=== PATIENT | male | born 1970 | race Caucasian/White ===

== ENCOUNTER 2017-11-13 15:55 | Emergency (ER) | payer OTHER ==
[~2017-11-13] VITALS: Ht 167.6 cm; Wt 73.5 kg
[~2017-11-13 15:55] MED LIST: ADVAIR 100/501 DISK IH; ASPIRIN325 MG PO; BUTALB-APAP-CA1 EACH PO; CARBAMAZEPINE200 MG; CYCLOBENZAPRINE 10 M; CYMBALTA60 MG; CYMBALTA60 MG PO; EXTRA STRENGTH500 M1 PO; FIORICET,ESG1 TABLET PO; LIORESAL10 MG PO; LISINOPRIL; LISINOPRIL5 MG; LO-DOSE ASPIRIN81 M1 PO; LUNESTA3 MG; LUNESTA3 MG PO; MOTRIN600 MG PO; NEURONTIN300 MG PO; NEXIUM40 MG; NEXIUM40 MG PO; PRAVACHOL40 MG PO; PRAVASTATIN SOD40 MG; PRINIVIL5 MG PO; PROAIR HFA8.5 GM IH; PROVOCHOL; TEGRETOL200 MG PO; TOPAMAX100 MG PO; TOPIRAMATE100 MG PO
[2017-11-13 17:16] LABS: HEMATOCRIT 40.9 % (38.0-50.0); MCHC 34.2 G/DL (30.0-36.0); MCV 87.6 FL (86-99); PLATELET COUNT 209 K/uL (156-360); RBC DIS.WIDTH-CV 12.6 % (11.8-14.6); RBC DIS.WIDTH-SD 40.5 % (39-53); RED BLOOD COUNT 4.67 M/uL (4.00-5.50); WHITE BLOOD COUNT 6.9 K/uL (4.1-10.2)
[2017-11-13 17:32] LABS: CHLORIDE 106 mEq/L (99-109); POTASSIUM 3.9 mEq/L (3.7-5.4); SODIUM 138 mEq/L (136-147)
[2017-11-13 17:33] LABS: APPEARANCE CLEAR ((CLEAR)); BILIRUBIN NEGATIVE; BLOOD NEGATIVE; COLOR YELLOW ((YELLOW)); GLUCOSE (STRIP) NEGATIVE; KETONES 20; LEUKOCYTES TRACE; NITRITE NEGATIVE; PROTEIN (STRIP) NEGATIVE; SPECIFIC GRAVITY 1.012 (1.000-1.030); UROBILINOGEN 0.2 MG/DL (0.2-1.0)
[2017-11-13 17:34] LABS: GLUCOSE 93 mg/dL (70-99)
[2017-11-13 17:37] LABS: SERUM ETHYL ALCOHOL < 10 mg/dL
[2017-11-13 17:38] LABS: GFR ESTIMATE (CALCULATED) > 59 mL/min/ (58.99-99999)
[2017-11-13 17:39] LABS: UREA NITROGEN (BUN) 12 mg/dL (9-23)
[2017-11-13 17:43] LABS: AMPHETAMINE NEGATIVE (500 ng/mL); BACTERIA RARE /HPF; BARBITURATES NEGATIVE (200 ng/mL); BENZODIAZEPINES NEGATIVE (150 ng/mL); BUPRENORPHINE NEGATIVE (10 ng/mL); COCAINE NEGATIVE (150 ng/mL); EPITHELIAL CELLS NONE SEEN /HPF; HYALINE CASTS 0-5 /LPF; METHADONE NEGATIVE (200 ng/mL); METHAMPHETAMINE NEGATIVE (500 ng/mL); MUCUS TRACE /LPF; OPIATES (MORPHINE) NEGATIVE (100 ng/mL); OXYCODONE NEGATIVE (100 ng/mL); PHENCYCLIDINE NEGATIVE (25 ng/mL); PROPOXYPHENE NEGATIVE (300 ng/mL); RED BLOOD CELLS 0-5 /HPF (0-5); THC CANNABINOIDS NEGATIVE (50 ng/mL); TRICYCLIC ANTIDEPRESSANTS NEGATIVE (300 ng/mL); UCUL ADDED? YES
[2017-11-13 19:08] VITALS: BP 123/88
== END 2017-11-13 19:33 | disposition home or self-care (01) ==
LOC: EME 15:55
PROVIDERS: Emergency Medicine
DX: R45.851 Suicidal ideations (principal); F31.32 Bipolar disorder, current episode depressed, moderate; F60.7 Dependent personality disorder; Z91.5 Personal history of self-harm; J44.9 Chronic obstructive pulmonary disease, unspecified; E11.9 Type 2 diabetes mellitus without complications; E78.5 Hyperlipidemia, unspecified; I10 Essential (primary) hypertension; K21.9 Gastro-esophageal reflux disease without esophagitis; R56.9 Unspecified convulsions; Z87.891 Personal history of nicotine dependence; Z88.8 Allergy status to other drugs, medicaments and biological substances
CPT/HCPCS: 80048; 81003; 85027; 87086; 90839; 99281; 99284; G0480